=== PATIENT | male | born 1985 | race Caucasian/White ===

== ENCOUNTER 2017-07-08 16:01 | Inpatient (IN) | payer MEDICARE, OTHER ==
[2017-07-08] MEDS ORDERED: ONDANSETRON 4 MG/2 ML VIAL IVPUSH ONE ×2 (16:03→16:32)
--- NOTE | 2017-07-08 16:03 | PDOC ---
History of Present Illness - General History Source: Patient, Friend Exam Limitations: No Limitations - History of Present Illness Initial Comments: 07/08/17 16:19 The patient is a 31 year old male, with no significant past medical history, who presents to the emergency department with, multiple episodes of emesis beginning approx. 3 hours ago. The patient states he began feeling nauseous and vomiting around 1 pm this afternoon. The patient states he drank a more than normal amount of alcoholic beverages last night. The patient reports he tried to eat yakut food earlier today but vomited after. The patient states he has had similar episodes of vomiting in the past and has been seen at [facility] ED. The patient states he has not followed up with a GI specialist. The patient denies history of stomach ulcers. He denies any recent fevers, chills, headache or dizziness. He denies any recent diarrhea or constipation. He denies any recent chest pain or shortness of breath. Allergies: NKA Past surgical history: None reported. Social History: Smoker 2-3 cigarettes a day. Moderate EtOH consumption. Patient reports marijuana usage. Primary Care Physician: Charisma Vu MD <Raymon Dupree - Last Filed: 07/08/17 16:30> <Michelle Toussaint - Last Filed: 07/09/17 12:02> - General Chief Complaint: Coffee Ground Emesis Stated Complaint: VOMITING Time Seen by Provider: 07/08/17 16:03 Past History <Raymon Dupree - Last Filed: 07/08/17 16:30> <Michelle Toussaint - Last Filed: 07/09/17 12:02> - Past Medical History Allergies/Adverse Reactions: Allergies Allergy/AdvReac Type Severity Reaction Status Date / Time No Known Allergies Allergy Verified 07/08/17 16:10 Home Medications: Ambulatory Orders NK [No Known Home Medication] 07/08/17 Review of Systems - Review of Systems Comments:: 07/08/17 16:20 GENERAL/CONSTITUTIONAL: No fever or chills. No weakness. HEAD, EYES, EARS, NOSE AND THROAT: No change in vision. No ear pain or discharge. No sore throat. CARDIOVASCULAR: No chest pain or shortness of breath. RESPIRATORY: No cough, wheezing, or hemoptysis. GASTROINTESTINAL: (+) Nausea. (+) Vomiting. No diarrhea or constipation. GENITOURINARY: No dysuria, frequency, or change in urination. MUSCULOSKELETAL: No joint or muscle swelling or pain. No neck or back pain. SKIN: No rash NEUROLOGIC: No headache, vertigo, loss of consciousness, or change in strength/ sensation. ENDOCRINE: No increased thirst. No abnormal weight change. HEMATOLOGIC/LYMPHATIC: No anemia, easy bleeding, or history of blood clots. ALLERGIC/IMMUNOLOGIC: No hives or skin allergy. <Raymon Dupree - Last Filed: 07/08/17 16:30> *Physical Exam - Vital Signs Last Vital Signs Temp Pulse Resp BP Pulse Ox 98.1 F 73 18 134/82 100 07/08/17 16:02 07/08/17 16:02 07/08/17 16:02 07/08/17 16:02 07/08/17 16:02 <Raymon Dupree - Last Filed: 07/08/17 16:30> - Physical Exam Comments: GENERAL: Awake, alert, and fully oriented, actively vomiting coffee grounds on arrival in ED. HEAD: No signs of trauma EYES: PERRLA, EOMI, sclera anicteric, conjunctiva clear ENT: Auricles normal inspection, hearing grossly normal, nares patent, oropharynx clear without exudates. Dry mucosa NECK: Normal ROM, supple, no lymphadenopathy, JVD, or masses LUNGS: Breath sounds equal, clear to auscultation bilaterally. No wheezes, and no crackles HEART: Regular rate and rhythm, normal S1 and S2, no murmurs, rubs or gallops ABDOMEN: Soft, +diffuse mild tenderness, hypoactive bowel sounds. No guarding, no rebound. No masses EXTREMITIES: Normal range of motion, no edema. No clubbing or cyanosis. No cords, erythema, or tenderness NEUROLOGICAL: Cranial nerves II through XII grossly intact. Normal speech, normal gait SKIN: Warm, Dry, normal turgor, no rashes or lesions noted. <Michelle Toussaint - Last Filed: 07/09/17 12:02> Heart Score/ECG Review - ECG Impressions Comment:: EKG read 18:03- NSR 62 bpm, no acute ST/T changes <Michelle Toussaint - Last Filed: 07/09/17 12:02> ED Treatment Course - LABORATORY CBC & Chemistry Diagram: 07/08/17 16:04 07/08/17 16:04 <Raymon Dupree - Last Filed: 07/08/17 16:30> - LABORATORY CBC & Chemistry Diagram: 07/09/17 06:00 07/09/17 06:00 <Michelle Toussaint - Last Filed: 07/09/17 12:02> Medical Decision Making - Medical Decision Making 07/08/17 17:00 Case d/w hospitalist Dr. Luciano. Vitals stable and H&H is wnl at present. Lactate pending. 07/08/17 18:03 Lactate 3.5. Patient has received 3 liters of IV fluid, will repeat. D/w hospitalist. <Michelle Toussaint - Last Filed: 07/09/17 12:02> *DC/Admit/Observation/Transfer - Attestations Scribe Attestion: 07/08/17 16:20 Documentation prepared by Raymon Dupree, acting as medical unit secretary for Michelle Toussaint MD. <Raymon Dupree - Last Filed: 07/08/17 16:30> - Discharge Dispostion Admit: Yes <Michelle Toussaint - Last Filed: 07/09/17 12:02> Diagnosis at time of Disposition: Coffee ground emesis - Discharge Dispostion Condition at time of disposition: Guarded
[2017-07-08] MEDS ORDERED: morphine CARPU-JECT 4 MG/1 ML DISP.SYRIN IVPUSH ONE (16:11)
[2017-07-08] MEDS ORDERED: SODIUM CHLORIDE 1,000 ML IV STA (16:11)
[2017-07-08] MEDS ORDERED: SODIUM CHLORIDE 2,000 ML IV STA (16:13)
[2017-07-08] MEDS ORDERED: PANTOPRAZOLE SODIUM 40 MG VIAL IVPUSH ONE (16:15)
[2017-07-08] MEDS ORDERED: morphine SULFATE 4 MG/ML VIAL ONE (16:23)
[2017-07-08 16:32] LABS: BASO % 0.4 % (0-2.0); EOS % 0.4 % (0-4.5); HEMATOCRIT 45.9 % (35.4-49); HEMOGLOBIN 15.3 GM/dl (11.7-16.9); LYMPH % 20.3 % (8-40); MCHC 33.3 g/dl (32.0-35.9); MEAN CELL VOLUME 90.2 fl (80-96); MEAN PLT VOLUME 9.1 fl (7.5-11.1); MONO % 7.8 % (3.8-10.2); NEUT % 71.1 % (42.8-82.8); PLATELET COUNT 265 K/MM3 (134-434); RBC 5.09 M/mm3 (4.00-5.60); RDW 12.7 % (11.9-15.9); WHITE BLOOD COUNT 8.9 K/mm3 (4.0-10.8)
[2017-07-08] MEDS ORDERED: ONDANSETRON 4 MG/2 ML VIAL ONE (16:37)
[2017-07-08 16:44] LABS: ALBUMIN 5.2 g/dl (3.5-5.0); ALK PHOS 75 U/L (32-92); ANION GAP 12 (8-16); BILIRUBIN,TOTAL 1.2 mg/dl (0.2-1.0); BLOOD UREA NITROGEN 15 mg/dl (7-18); CALCIUM 9.9 mg/dl (8.4-10.2); CHLORIDE 100 mmol/L (98-107); CO2 25 mmol/L (22-28); CREATININE 1.2 mg/dl (0.6-1.3); GLUCOSE,RANDOM 117 mg/dl (74-106); POTASSIUM 3.9 mmol/L (3.5-5.1); SGOT/AST 31 U/L (10-42); SGPT/ALT 18 U/L (10-40); SODIUM 137 mmol/L (136-145); TOT PROT 8.7 g/dl (6.4-8.3)
[2017-07-08] MEDS ORDERED: METOCLOPRAMIDE HCL INJECTION 10 MG/2 ML VIAL IVPB ONE (16:52)
[2017-07-08 16:59] LABS: INR 1.1 (0.82-1.09); PROTHROMBIN TIME (PATIENT) 12.3 SEC (10.2-13.0)
[2017-07-08] MEDS ORDERED: PANTOPRAZOLE SODIUM 80 MG in SODIUM CHLORIDE 100 ML IVPB SCH (17:00)
[2017-07-08 17:33] LABS: LIPASE 130 U/L (73-393)
[2017-07-08 18:20] LABS: URINE APPEARANCE Clear; URINE BILIRUBIN 1+ (NEGATIVE); URINE BLOOD Negative (NEGATIVE); URINE COLOR YELLOW; URINE GLUCOSE (UA) Negative (NEGATIVE); URINE KETONE 4+ (NEGATIVE); URINE LEUK ESTERASE Negative (NEGATIVE); URINE NITRITE Negative (NEGATIVE); URINE PROTEIN 1+ (NEGATIVE)
[2017-07-08 18:54] LABS: EPI CELLS 0-3 /HPF; URINE MUCUS 2+; URINE RBC NONE SEEN /hpf (0-3); URINE WBC 0-3 (0-2)
[2017-07-08 19:20] LABS: METHADONE, UR NEGATIVE ng/ml (CUTOFF=300); PHENCYCLIDINE,URINE NEGATIVE ng/ml (CUTOFF=25); URINE AMPHETAMINES NEGATIVE ng/ml (CUTOFF=500); URINE BARBITURATES NEGATIVE ng/ml (CUTOFF=200); URINE BENZODIAZEPINES NEGATIVE ng/ml (CUTOFF=200)
[2017-07-08 19:22] LABS: COCAINE, UR POSITIVE ng/ml (CUTOFF=300); OPIATES, URI POSITIVE ng/ml (CUTOFF=300)
[2017-07-08 19:26] LABS: BASO % 0.4 % (0-2.0); EOS % 0.2 % (0-4.5); HEMATOCRIT 37.7 % (35.4-49); HEMOGLOBIN 12.7 GM/dl (11.7-16.9); MCH 30.5 pg (25.7-33.7); MCHC 33.6 g/dl (32.0-35.9); MEAN CELL VOLUME 90.7 fl (80-96); MEAN PLT VOLUME 8.8 fl (7.5-11.1); MONO % 5.8 % (3.8-10.2); NEUT % 80.6 % (42.8-82.8); PLATELET COUNT 204 K/MM3 (134-434); RBC 4.16 M/mm3 (4.00-5.60); RDW 12.9 % (11.9-15.9); WHITE BLOOD COUNT 7.5 K/mm3 (4.0-10.8)
--- NOTE | 2017-07-08 22:32 | PN ---
Teaching Attending Note Name of Resident: Richard Edmonds ATTENDING PHYSICIAN STATEMENT I saw and evaluated the patient. Chart, data reviewed. I reviewed the resident's note and discussed the case with the resident. I agree with the resident's findings and plan as documented. SUBJECTIVE: 31yo man with marijuana and cocaine abuse c/o vomiting which started 4/7 in the early afternoon after he ate portuguese food. He reported multiple episodes of dark , bloody vomitus which started immediately after starting to eat portuguese food - sesame chicken and fried rice. He denied any abdominal pain or diarrhea. No LOC or dizziness. No family history of stomach cancer. OBJECTIVE: Last Vital Signs Temp Pulse Resp BP Pulse Ox 98.3 F 72 16 113/59 100 07/08/17 21:03 07/08/17 21:03 07/08/17 21:03 07/08/17 21:03 07/08/17 20:12 general - nad, aaox3 heent- no sclera pallor neck -supple cv-s1+s2+rrr chest- cta b/l abdomen- soft, nt, no masses palpated skin -no rashes appreciated Abnormal Lab Results 07/08/17 07/08/17 07/08/17 16:04 16:30 18:10 Random Glucose 117 H Lactic Acid 3.5 H* Total Bilirubin 1.2 H Total Protein 8.7 H Albumin 5.2 H Urine Protein 1+ H Urine Ketones 4+ H Urine Bilirubin 1+ H EKG -reviewed, NSR ASSESSMENT AND PLAN: #31yo man with sudden hematemesis, now resolved. Unknown etiology. Hemodynamically stable. -admit to med/surg -trend CBC -PPIs IV q12hrs -IV fluid hydration -NPO -zofran IV prn if nausea and vomiting -GI consult for EGD #substance abuse- marijuana, cocaine -counseled on cessation #DVT ppx -SCDs
[2017-07-08] MEDS ORDERED: ONDANSETRON 4 MG/2 ML VIAL IVPUSH PRN (22:40)
--- NOTE | 2017-07-08 22:40 | HP ---
CHIEF COMPLAINT: Hematemesis PCP: Charisma Vu MD HISTORY OF PRESENT ILLNESS: 31 year old M with no pmh presented with coffee ground emesis. Patient went out drinking last night and had a moderate amount of alcohol and cocaine. Patient woke up this morning and went to work feeling fine. At 230, he ate sesame chicken/pork fried rice and after 2 bites had emesis. The emesis started off as yellow, but then transitioned to red/black. Patient came to the ED. He continued to have emesis until 630. Patient denies fever, chills, abd pain, diarrhea, constipation, bloody stools. Patient had an episode of emesis in the past 3 years ago, but has never seen a GI doctor. ER course was notable for: (1) labs (2) vitals (3) utox Recent Travel: denies PAST MEDICAL HISTORY: none PAST SURGICAL HISTORY: orchiectomy as child Social History: Smokin cigs/week Alcohol: 1 night per week Drugs: +cocaine (2x/month)/marijuana(daily) Family History: noncontributory Allergies No Known Allergies Allergy (Verified 07/08/17 16:10) HOME MEDICATIONS: Home Medications Medication Instructions Recorded NK [No Known Home Medication] 07/08/17 REVIEW OF SYSTEMS CONSTITUTIONAL: Absent: fever, chills, diaphoresis, generalized weakness, malaise, loss of appetite, weight change HEENT: Absent: rhinorrhea, nasal congestion, throat pain, throat swelling, difficulty swallowing, mouth swelling, ear pain, eye pain, visual changes CARDIOVASCULAR: Absent: chest pain, syncope, palpitations, irregular heart rate, lightheadedness , peripheral edema RESPIRATORY: Absent: cough, shortness of breath, dyspnea with exertion, orthopnea, wheezing, stridor, hemoptysis GASTROINTESTINAL: Absent: abdominal pain, abdominal distension, nausea, vomiting, hematemesis, diarrhea, constipation, melena, hematochezia GENITOURINARY: Absent: dysuria, frequency, urgency, hesitancy, hematuria, flank pain, genital pain MUSCULOSKELETAL: Absent: myalgia, arthralgia, joint swelling, back pain, neck pain SKIN: Absent: rash, itching, pallor HEMATOLOGIC/IMMUNOLOGIC: Absent: easy bleeding, easy bruising, lymphadenopathy, frequent infections ENDOCRINE: Absent: unexplained weight gain, unexplained weight loss, heat intolerance, cold intolerance NEUROLOGIC: Absent: headache, focal weakness or paresthesias, dizziness, unsteady gait, seizure, mental status changes, bladder or bowel incontinence PSYCHIATRIC: Absent: anxiety, depression, suicidal or homicidal ideation, hallucinations. PHYSICAL EXAMINATION Vital Signs - 24 hr 07/08/17 07/08/17 07/08/17 16:02 17:00 20:12 Temperature 98.1 F Pulse Rate 73 Pulse Rate [ 75 72 Left Radial] Respiratory 18 16 16 Rate Blood Pressure 134/82 Blood Pressure 130/78 113/59 [Left Arm] O2 Sat by Pulse 100 99 100 Oximetry (%) 07/08/17 07/08/17 20:25 21:03 Temperature 98.3 F 98.3 F Pulse Rate 72 72 Pulse Rate [ Left Radial] Respiratory 16 16 Rate Blood Pressure 113/59 113/59 Blood Pressure [Left Arm] O2 Sat by Pulse Oximetry (%) GENERAL: Awake, alert, and fully oriented, in no acute distress. HEAD: Normal with no signs of trauma. EYES: Extraocular movements intact, sclera anicteric, conjunctiva clear. No lid lag. EARS, NOSE, THROAT: Nares patent, oropharynx clear without exudates. Dry mucous membranes. NECK: Normal range of motion, supple without lymphadenopathy, JVD, or masses. LUNGS: Breath sounds equal, clear to auscultation bilaterally. No wheezes, and no crackles. No accessory muscle use. HEART: Regular rate and rhythm, normal S1 and S2 without murmur, rub or gallop. ABDOMEN: Soft, nontender, not distended, normoactive bowel sounds, no guarding, no rebound, no masses. No hepatomegaly or splenomegaly. MUSCULOSKELETAL: Normal range of motion at all joints. No bony deformities or tenderness. No CVA tenderness. UPPER EXTREMITIES: 2+ pulses, warm, well-perfused. No cyanosis. No clubbing. No peripheral edema. LOWER EXTREMITIES: 2+ pulses, warm, well-perfused. No calf tenderness. No peripheral edema. NEUROLOGICAL: Cranial nerves II-XII intact. Normal speech. Normal gait. PSYCHIATRIC: Cooperative. Good eye contact. Appropriate mood and affect. SKIN: Warm, dry, normal turgor, no rashes or lesions noted, normal capillary refill. Laboratory Results - last 24 hr 07/08/17 07/08/17 07/08/17 16:04 16:04 16:04 WBC 8.9 RBC 5.09 Hgb 15.3 Hct 45.9 MCV 90.2 MCH 30.0 MCHC 33.3 RDW 12.7 Plt Count 265 MPV 9.1 Neutrophils % 71.1 Lymphocytes % 20.3 Monocytes % 7.8 Eosinophils % 0.4 Basophils % 0.4 PT with INR 12.3 INR 1.10 Sodium 137 Potassium 3.9 Chloride 100 Carbon Dioxide 25 Anion Gap 12 BUN 15 Creatinine 1.2 Creat Clearance w eGFR > 60 Random Glucose 117 H Lactic Acid Calcium 9.9 Total Bilirubin 1.2 H AST 31 ALT 18 Alkaline Phosphatase 75 Total Protein 8.7 H Albumin 5.2 H Lipase 130 Urine Color Urine Appearance Urine pH Ur Specific [place] Urine Protein Urine Glucose (UA) Urine Ketones Urine Blood Urine Nitrite Urine Bilirubin Urine Urobilinogen Ur Leukocyte Esterase Urine RBC Urine WBC Ur Epithelial Cells Urine Mucus Opiates Screen Methadone Screen Barbiturate Screen Phencyclidine Screen Ur Amphetamines Screen MDMA (Ecstasy) Screen Benzodiazepines Screen Cocaine Screen U Marijuana (THC) Screen Blood Type Antibody Screen 07/08/17 07/08/17 07/08/17 16:04 16:15 16:30 WBC RBC Hgb Hct MCV MCH MCHC RDW Plt Count MPV Neutrophils % Lymphocytes % Monocytes % Eosinophils % Basophils % PT with INR INR Sodium Potassium Chloride Carbon Dioxide Anion Gap BUN Creatinine Creat Clearance w eGFR Random Glucose Lactic Acid 3.5 H* Calcium Total Bilirubin AST ALT Alkaline Phosphatase Total Protein Albumin Lipase Urine Color Urine Appearance Urine pH Ur Specific [place] Urine Protein Urine Glucose (UA) Urine Ketones Urine Blood Urine Nitrite Urine Bilirubin Urine Urobilinogen Ur Leukocyte Esterase Urine RBC Urine WBC Ur Epithelial Cells Urine Mucus Opiates Screen Methadone Screen Barbiturate Screen Phencyclidine Screen Ur Amphetamines Screen MDMA (Ecstasy) Screen Benzodiazepines Screen Cocaine Screen U Marijuana (THC) Screen Blood Type A POSITIVE A POSITIVE Antibody Screen Negative 07/08/17 07/08/17 07/08/17 18:10 18:10 19:00 WBC RBC Hgb Hct MCV MCH MCHC RDW Plt Count MPV Neutrophils % Lymphocytes % Monocytes % Eosinophils % Basophils % PT with INR INR Sodium Potassium Chloride Carbon Dioxide Anion Gap BUN Creatinine Creat Clearance w eGFR Random Glucose Lactic Acid 0.8 Calcium Total Bilirubin AST ALT Alkaline Phosphatase Total Protein Albumin Lipase Urine Color Yellow Urine Appearance Clear Urine pH 6.0 Ur Specific [place] 1.025 Urine Protein 1+ H Urine Glucose (UA) Negative Urine Ketones 4+ H Urine Blood Negative Urine Nitrite Negative Urine Bilirubin 1+ H Urine Urobilinogen 1.0 Ur Leukocyte Esterase Negative Urine RBC None seen Urine WBC 0-3 Ur Epithelial Cells 0-3 Urine Mucus 2+ Opiates Screen Positive Methadone Screen Negative Barbiturate Screen Negative Phencyclidine Screen Negative Ur Amphetamines Screen Negative MDMA (Ecstasy) Screen Negative Benzodiazepines Screen Negative Cocaine Screen Positive U Marijuana (THC) Screen Positive Blood Type Antibody Screen 07/08/17 19:00 WBC 7.5 RBC 4.16 Hgb 12.7 D Hct 37.7 D MCV 90.7 MCH 30.5 MCHC 33.6 RDW 12.9 Plt Count 204 D MPV 8.8 Neutrophils % 80.6 Lymphocytes % 13.0 D Monocytes % 5.8 Eosinophils % 0.2 Basophils % 0.4 PT with INR INR Sodium Potassium Chloride Carbon Dioxide Anion Gap BUN Creatinine Creat Clearance w eGFR Random Glucose Lactic Acid Calcium Total Bilirubin AST ALT Alkaline Phosphatase Total Protein Albumin Lipase Urine Color Urine Appearance Urine pH Ur Specific [place] Urine Protein Urine Glucose (UA) Urine Ketones Urine Blood Urine Nitrite Urine Bilirubin Urine Urobilinogen Ur Leukocyte Esterase Urine RBC Urine WBC Ur Epithelial Cells Urine Mucus Opiates Screen Methadone Screen Barbiturate Screen Phencyclidine Screen Ur Amphetamines Screen MDMA (Ecstasy) Screen Benzodiazepines Screen Cocaine Screen U Marijuana (THC) Screen Blood Type Antibody Screen ASSESSMENT/PLAN: 31 year old M with no pmh presented with coffee ground emesis #Coffee ground emesis -npo -ivf ns @ 125 cc/hr -zofran prn -protonix 40 mg bid -trend cbc, transfuse if hgb <7 -Gi consult, Dr Donahue #FEN/GI -ivf @ 125 cc/hr -wnl -npo #PPx -SCDs Visit type - Emergency Visit Emergency Visit: Yes ED Registration Date: 07/08/17 Care time: The patient presented to the Emergency Department on the above date and was hospitalized for further evaluation of their emergent condition. - New Patient This patient is new to me today: Yes Date on this admission: 07/08/17 - Critical Care Critical Care patient: No Hospitalist Screening - Colonoscopy Questionnaire Colonoscopy Questionnaire: Colonoscopy Questionnaire - Patient: 50 - 75 years old and never had a screening colonoscopy: Unknown History of colon or rectal polyps, or CA: Unknown History of IBD, Crohn's disease or UC: Unknown History of abdominal radiation therapy as a child: Unknown - Relative: 1 with colon or rectal CA, or polyps at age 60 or younger: Unknown Colon or rectal CA diagnosed at age 45 or younger: Unknown Multiple relatives with colon or rectal CA: Unknown - Outcome: Screening Result: Negative Screen
[2017-07-08] MEDS ORDERED: FOLIC ACID 1 MG TABLET (FP) PO ONE (22:45)
[2017-07-08] MEDS ORDERED: THIAMINE HCL 200 MG/2 ML VIAL IVPB ONE (22:45)
[2017-07-08] MEDS: SODIUM CHLORIDE 1,000 ML IV SCH (23:21)
[2017-07-08 23:59] LABS: BASO % 0.2 % (0-2.0); EOS % 0.1 % (0-4.5); HEMATOCRIT 37.3 % (35.4-49); HEMOGLOBIN 12.8 GM/dL (11.7-16.9); LYMPH % 24.5 % (8-40); MCH 31.3 pg (25.7-33.7); MCHC 34.4 g/dl (32.0-35.9); MEAN CELL VOLUME 91.2 fl (80-96); MEAN PLT VOLUME 9.3 fl (7.5-11.1); MONO % 8.7 % (3.8-10.2); NEUT % 66.5 % (42.8-82.8); PLATELET COUNT 180 K/MM3 (134-434); RBC 4.09 M/mm3 (4.00-5.60); RDW 13.2 % (11.9-15.9); WHITE BLOOD COUNT 6.3 K/mm3 (4.0-10.0)
[2017-07-09 01:27] VITALS: BMI 25.7
[2017-07-09 08:29] LABS: ALBUMIN 3.3 g/dl (3.4-5.0); ANION GAP 7 (8-16); BLOOD UREA NITROGEN 12 mg/dL (7-18); CALCIUM 8.1 mg/dL (8.5-10.1); CHLORIDE 110 mmol/L (98-107); CO2 25 mmol/L (21-32); GLUCOSE,RANDOM 80 mg/dL (74-106); POTASSIUM 3.9 mmol/L (3.5-5.1); SGOT/AST 16 U/L (15-37); SGPT/ALT 18 U/L (12-78); SODIUM 142 mmol/L (136-145)
[2017-07-09 08:32] LABS: ALK PHOS 60 U/L (45-117); BILIRUBIN,TOTAL 0.8 mg/dL (0.2-1.0); CREATININE 0.9 mg/dL (0.7-1.3); TOT PROT 5.7 g/dl (6.4-8.2)
[2017-07-09 08:38] LABS: INR 1.1 (0.82-1.09); PROTHROMBIN TIME (PATIENT) 12.4 SEC (9.98-11.88)
[2017-07-09 08:56] LABS: BASO % 0.3 % (0-2.0); EOS % 1.2 % (0-4.5); HEMATOCRIT 35.5 % (35.4-49); HEMOGLOBIN 11.9 GM/dL (11.7-16.9); LYMPH % 47.7 % (8-40); MCH 30.9 pg (25.7-33.7); MCHC 33.6 g/dl (32.0-35.9); MEAN CELL VOLUME 92.1 fl (80-96); MEAN PLT VOLUME 9.8 fl (7.5-11.1); MONO % 9.4 % (3.8-10.2); NEUT % 41.4 % (42.8-82.8); PLATELET COUNT 153 K/MM3 (134-434); RBC 3.85 M/mm3 (4.00-5.60); RDW 13.3 % (11.9-15.9); WHITE BLOOD COUNT 5.3 K/mm3 (4.0-10.0)
--- NOTE | 2017-07-09 09:00 | EKG ---
Test Reason : Blood Pressure : / mmHG Vent. Rate : 062 BPM Atrial Rate : 062 BPM P-R Int : 174 ms QRS Dur : 088 ms QT Int : 430 ms P-R-T Axes : 073 076 056 degrees QTc Int : 436 ms NORMAL SINUS RHYTHM NORMAL ECG NO PREVIOUS ECGS AVAILABLE Confirmed by MAURO MENDIETA, LIZABETH ([id number]) on 07/09/2017 9:00:26 AM Referred By: SHANAE Confirmed By:LIZABETH WADE MD
[2017-07-09] MEDS ORDERED: PANTOPRAZOLE SODIUM 40 MG VIAL IVPUSH SCH (10:00)
--- NOTE | 2017-07-09 13:22 | CON.GI ---
Consult Consult Specialty:: GI Referred by:: Hospitalist Service Reason for Consultation:: Hematemesis - History of Present Illness Chief Complaint: "I was vomiting" History of Present Illness: 31M admitted through [facility] ER for evaluation of vomiting. He states that it began around 2:45pm yesterday afternoon. He had eaten lunch earlier. He began vomiting, initially food material, then bilious vomiting "more times than he could count" followed by red tinged/black vomitus. Triage vitals revealed him to be afebrile, not tachycardic and normotensive. The evening before this event he had drank enough alcohol to have a hangover yesterday morning, snorted cocaine and smoked marijauna. He says that he will have episodes of vomiting intermittently and had a persistent episode 3 years ago requiring an ER evaluation (no interventions performed aside from medications). He has never had n upper endoscopy or colonoscopy. There is no family history of colorectal cancer or other GI malignancy. 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 - Alcohol/Substance Use Hx Alcohol Use: Yes History of Substance Use: reports: Cocaine (twice per month, intranasal), Marijuana (daily) - Smoking History Smoking history: Current every day smoker Have you smoked in the past 12 months: Yes Aproximately how many cigarettes per day: 2 - Social History Usual Living Arrangement: Alone ADL: Independent Occupation: Works in [employer] store Place of : [facility] History of Recent Travel: No Home Medications - Allergies Allergies/Adverse Reactions: Allergies Allergy/AdvReac Type Severity Reaction Status Date / Time No Known Allergies Allergy Verified 07/08/17 16:10 - Home Medications Home Medications: Ambulatory Orders NK [No Known Home Medication] 07/08/17 Family Disease History - Family Disease History Family Disease History: Other: Father ( age 32: killed), Mother (alive: 60: healthy), Brother (7, some are 1/2 siblings: healthy), Sister (4, some are half siblings: healthy), Son (2, heatlhy) Other Family History: No family history of colorectal cancer or other GI malignancy Review of Systems - Review of Systems Constitutional: denies: Fever Cardiovascular: denies: Chest Pain Respiratory: denies: SOB Gastrointestinal: reports: Nausea, Vomiting, Vomiting Blood. denies: Abdominal Pain, Constipation, Melena, Rectal Bleeding Physical Exam-GI Vital Signs: Vital Signs Temperature 98 F 07/09/17 10:00 Pulse Rate 44 L 07/09/17 10:00 Respiratory Rate 18 07/09/17 10:00 Blood Pressure 110/60 07/09/17 10:00 O2 Sat by Pulse Oximetry (%) 97 07/09/17 09:00 Constitutional: Yes: Calm Eyes: No: Sclera Icterus Cardiovascular: Yes: Bradycardia (pulse regular). No: Murmur Respiratory: Yes: CTA Bilaterally, Diminished Gastrointestinal Inspection: No: Distention, Scars ...Auscultate: Yes: Normoactive Bowel Sounds ...Palpate: No: Hepatomegaly, Splenomegaly, Tenderness ...Percussion: No: Tympanitic ...Rectal Exam: Yes: Deferred (refused by patient) Edema: No Neurological: Yes: Alert, Oriented Labs: CBC, BMP 07/09/17 06:00 07/09/17 06:00 INR, PTT INR 1.10 (0.82-1.09) 07/09/17 06:00 Problem List - Problems (1) Coffee ground emesis Assessment/Plan: Coffee ground emesis occurred only after multiple episodes of non bloody vomiting. Suspect Romina Banks tear. Aside from his current acute episode he also gives somewhat of a chronic history of intermittent vomiting. This could very well be attributed to his regular marijuana use. i explained this to him. Advise: Clear liquids D/C PPI drip and change to PO Advised complete alcohol, marijuana and cocaine cessation patient bradycardic. Unclear baseline. If cleared from cardio standpoint, can have EGD tomorrow. Discussed EGD with Satya. Discussed potential risks of the procedure like but not limited to bleeding, perfoation requiring surgery to repair, infection, sedation medication effetcs all of which could be potentially life threatening. he has agreed. NPO except meds after midnight. Monitor H/H and for active bleeding. Code(s): K92.0 - HEMATEMESIS
--- NOTE | 2017-07-09 13:54 | CON.GI ---
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
[2017-07-09] MEDS: SODIUM CHLORIDE 1,000 ML IV SCH (16:58)
--- NOTE | 2017-07-09 17:20 | CON.CARD ---
Consult Consult Specialty:: Cardiology Referred by:: Wolf Cho DO Reason for Consultation:: Pre-procedure cardiovascular evaluation - History of Present Illness Chief Complaint: Hematemesis History of Present Illness: 31M h/o cocaine, marijuana and alcohol abuse admitted for evaluation of hematemesis, planned for EGD, suspect MWT. Patient denies cardiovascular symptoms including angina, dyspnea, near or true syncope, palpitations, orthopnea, PND or LE edema, sinus bradycardia 40s on telemetry overnight, increasing appropriately with activity. - History Source History Provided By: Patient Limitations to Obtaining History: No Limitations - Past Surgical History Additional Surgical History: Correction of left undescended testicle - Alcohol/Substance Use Hx Alcohol Use: Yes History of Substance Use: reports: Cocaine (twice per month, intranasal), Marijuana (daily) - Smoking History Smoking history: Current every day smoker Have you smoked in the past 12 months: Yes Aproximately how many cigarettes per day: 2 - Social History Usual Living Arrangement: Alone ADL: Independent Occupation: Works in History of Recent Travel: No Home Medications - Allergies Allergies/Adverse Reactions: Allergies Allergy/AdvReac Type Severity Reaction Status Date / Time No Known Allergies Allergy Verified 07/08/17 16:10 - Home Medications Home Medications: Ambulatory Orders NK [No Known Home Medication] 07/08/17 Family Disease History - Family Disease History Family Disease History: Other: Father ( age 32: killed), Mother (alive: 60: healthy), Brother (7, some are 1/2 siblings: healthy), Sister (4, some are half siblings: healthy), Son (2, heatlhy) Other Family History: No family history of colorectal cancer or other GI malignancy Review of Systems - Review of Systems Gastrointestinal: reports: Nausea, Vomiting, Other (Hematemesis) Vital Signs: Vital Signs Temperature 97.8 F 07/09/17 14:00 Pulse Rate 71 07/09/17 14:00 Respiratory Rate 18 07/09/17 14:00 Blood Pressure 107/47 07/09/17 14:00 O2 Sat by Pulse Oximetry (%) 97 07/09/17 09:00 Constitutional: Yes: No Distress, Calm, Thin Neck: Yes: Supple Respiratory: Yes: Regular, CTA Bilaterally Gastrointestinal: Yes: Normal Bowel Sounds, Soft Cardiovascular: Yes: Regular Rate and Rhythm JVD: No Carotid Bruit: No Heart Sounds: Yes: S1, S2 Edema: No - Other Data Labs, Other Data: CBC, BMP 07/09/17 06:00 07/09/17 06:00 INR, PTT INR 1.10 (0.82-1.09) 07/09/17 06:00 NSR @ 62 Sinus bradycardia 40s on telemetry overnight, increasing appropriately with activity. Problem List - Problems (1) Pre-procedural cardiovascular examination Code(s): Z01.810 - ENCOUNTER FOR PREPROCEDURAL CARDIOVASCULAR EXAMINATION (2) Polysubstance abuse Code(s): F19.10 - OTHER PSYCHOACTIVE SUBSTANCE ABUSE, UNCOMPLICATED (3) Coffee ground emesis Code(s): K92.0 - HEMATEMESIS Assessment/Plan 1. Hematemesis exclude Romina-Banks Tears 2. Pre-procedure cardiovascular evaluation 3. Sinus bradycardia referable to high vagal tone with chronotropic competence, does not need intervention P:1. Given absence of symptoms of acute coronary syndrome, decompensated CHF or malignant arrhythmia, may proceed with EGD from CV-standpoint 2. No intervention indicated for asymptomatic sinus bradycardia 3. Continue oral PPI, plan for EGD in AM 4. Advised importance of alcohol, marijuana and cocaine abstinence 5. Thank you for consultative opportunity, august d/c telemetry monitoring
--- NOTE | 2017-07-09 18:27 | PN ---
Physical Exam: SUBJECTIVE: Patient seen and examined. He has no complaints. He denies chest pain, palpitations, abdominal pain, nausea, vomiting. OBJECTIVE: Vital Signs Period Temp Pulse Resp BP Sys/Hebert Pulse Ox Last 24 Hr 97.6 F-98.5 F 43-72 16-18 106-113/47-62 97-100 GENERAL: The patient is awake, alert, and fully oriented, in no acute distress. LUNGS: Breath sounds equal, clear to auscultation bilaterally, no wheezes, no crackles, no accessory muscle use. HEART: Regular rate and rhythm, S1, S2 without murmur, rub or gallop. ABDOMEN: Soft, nontender, nondistended, normoactive bowel sounds, no guarding, no rebound, no hepatosplenomegaly, no masses. EXTREMITIES: 2+ pulses, warm, well-perfused, no edema. Laboratory Results - last 24 hr 07/08/17 07/08/17 07/08/17 16:04 16:15 18:10 WBC RBC Hgb Hct MCV MCH MCHC RDW Plt Count MPV Neutrophils % Lymphocytes % Monocytes % Eosinophils % Basophils % PT with INR INR Sodium Potassium Chloride Carbon Dioxide Anion Gap BUN Creatinine Creat Clearance w eGFR Random Glucose Lactic Acid Calcium Total Bilirubin AST ALT Alkaline Phosphatase Total Protein Albumin Urine Color Yellow Urine Appearance Clear Urine pH 6.0 Ur Specific [place] 1.025 Urine Protein 1+ H Urine Glucose (UA) Negative Urine Ketones 4+ H Urine Blood Negative Urine Nitrite Negative Urine Bilirubin 1+ H Urine Urobilinogen 1.0 Ur Leukocyte Esterase Negative Urine RBC None seen Urine WBC 0-3 Ur Epithelial Cells 0-3 Urine Mucus 2+ Opiates Screen Methadone Screen Barbiturate Screen Phencyclidine Screen Ur Amphetamines Screen MDMA (Ecstasy) Screen Benzodiazepines Screen Cocaine Screen U Marijuana (THC) Screen Blood Type A POSITIVE A POSITIVE Antibody Screen Negative 07/08/17 07/08/17 07/08/17 18:10 19:00 19:00 WBC 7.5 RBC 4.16 Hgb 12.7 D Hct 37.7 D MCV 90.7 MCH 30.5 MCHC 33.6 RDW 12.9 Plt Count 204 D MPV 8.8 Neutrophils % 80.6 Lymphocytes % 13.0 D Monocytes % 5.8 Eosinophils % 0.2 Basophils % 0.4 PT with INR INR Sodium Potassium Chloride Carbon Dioxide Anion Gap BUN Creatinine Creat Clearance w eGFR Random Glucose Lactic Acid 0.8 Calcium Total Bilirubin AST ALT Alkaline Phosphatase Total Protein Albumin Urine Color Urine Appearance Urine pH Ur Specific [place] Urine Protein Urine Glucose (UA) Urine Ketones Urine Blood Urine Nitrite Urine Bilirubin Urine Urobilinogen Ur Leukocyte Esterase Urine RBC Urine WBC Ur Epithelial Cells Urine Mucus Opiates Screen Positive Methadone Screen Negative Barbiturate Screen Negative Phencyclidine Screen Negative Ur Amphetamines Screen Negative MDMA (Ecstasy) Screen Negative Benzodiazepines Screen Negative Cocaine Screen Positive U Marijuana (THC) Screen Positive Blood Type Antibody Screen 07/08/17 07/09/17 07/09/17 23:52 06:00 06:00 WBC 6.3 5.3 RBC 4.09 3.85 L Hgb 12.8 11.9 Hct 37.3 35.5 MCV 91.2 92.1 MCH 31.3 30.9 MCHC 34.4 33.6 RDW 13.2 13.3 Plt Count 180 153 MPV 9.3 9.8 Neutrophils % 66.5 41.4 L D Lymphocytes % 24.5 47.7 H D Monocytes % 8.7 9.4 Eosinophils % 0.1 1.2 D Basophils % 0.2 0.3 PT with INR 12.40 H INR 1.10 Sodium Potassium Chloride Carbon Dioxide Anion Gap BUN Creatinine Creat Clearance w eGFR Random Glucose Lactic Acid Calcium Total Bilirubin AST ALT Alkaline Phosphatase Total Protein Albumin Urine Color Urine Appearance Urine pH Ur Specific [place] Urine Protein Urine Glucose (UA) Urine Ketones Urine Blood Urine Nitrite Urine Bilirubin Urine Urobilinogen Ur Leukocyte Esterase Urine RBC Urine WBC Ur Epithelial Cells Urine Mucus Opiates Screen Methadone Screen Barbiturate Screen Phencyclidine Screen Ur Amphetamines Screen MDMA (Ecstasy) Screen Benzodiazepines Screen Cocaine Screen U Marijuana (THC) Screen Blood Type Antibody Screen 07/09/17 06:00 WBC RBC Hgb Hct MCV MCH MCHC RDW Plt Count MPV Neutrophils % Lymphocytes % Monocytes % Eosinophils % Basophils % PT with INR INR Sodium 142 Potassium 3.9 Chloride 110 H Carbon Dioxide 25 Anion Gap 7 L BUN 12 Creatinine 0.9 Creat Clearance w eGFR > 60 Random Glucose 80 Lactic Acid Calcium 8.1 L Total Bilirubin 0.8 AST 16 ALT 18 Alkaline Phosphatase 60 Total Protein 5.7 L Albumin 3.3 L Urine Color Urine Appearance Urine pH Ur Specific [place] Urine Protein Urine Glucose (UA) Urine Ketones Urine Blood Urine Nitrite Urine Bilirubin Urine Urobilinogen Ur Leukocyte Esterase Urine RBC Urine WBC Ur Epithelial Cells Urine Mucus Opiates Screen Methadone Screen Barbiturate Screen Phencyclidine Screen Ur Amphetamines Screen MDMA (Ecstasy) Screen Benzodiazepines Screen Cocaine Screen U Marijuana (THC) Screen Blood Type Antibody Screen Active Medications Generic Name Dose Route Start Last Admin Trade Name Freq PRN Reason Stop Dose Admin Sodium Chloride 1,000 mls @ 125 mls/hr 07/08/17 22:45 07/09/17 16:58 Normal Saline - IV 125 mls/hr ASDIR SHONA Administration Ondansetron HCl 4 mg 07/08/17 22:40 Zofran Injection IVPUSH Q6H PRN NAUSEA Pantoprazole Sodium 40 mg 07/10/17 10:00 Protonix - PO DAILY SHONA ASSESSMENT/PLAN: This is a 31 year old man with no significant medical history who presented to the ED with coffee ground emesis. 1. Coffee ground emesis likely secondary to Romina Banks tear - Continue Protonix - Hemoglobin stable - Plan for EGD tomorrow - Stop alcohol, marijuana 2. Sinus bradycardia, asymptomatic - Cardiology input appreciated Visit type - Emergency Visit Emergency Visit: Yes ED Registration Date: 07/08/17 Care time: The patient presented to the Emergency Department on the above date and was hospitalized for further evaluation of their emergent condition. - New Patient This patient is new to me today: Yes Date on this admission: 07/09/17 - Critical Care Critical Care patient: No - Discharge Referral Referred to [facility] No
[2017-07-10] MEDS: SODIUM CHLORIDE 1,000 ML IV SCH (00:02)
[2017-07-10 06:33] LABS: HEMATOCRIT 34.2 % (35.4-49); HEMOGLOBIN 11.8 GM/dL (11.7-16.9); MCH 31.8 pg (25.7-33.7); MCHC 34.5 g/dl (32.0-35.9); MEAN CELL VOLUME 92.1 fl (80-96); MEAN PLT VOLUME 9.6 fl (7.5-11.1); PLATELET COUNT 157 K/MM3 (134-434); RBC 3.71 M/mm3 (4.00-5.60); RDW 13.2 % (11.9-15.9); WHITE BLOOD COUNT 3.9 K/mm3 (4.0-10.0)
[2017-07-10] MEDS ORDERED: PANTOPRAZOLE 40 MG TABLET (FP) PO SCH (10:00)
--- NOTE | 2017-07-10 10:15 | PN ---
Progress Note, Physician Chief Complaint: Events noted Not in distress History of Present Illness: Patient was seen and examined. Awake and alert. Chart was reviewed Denies chest pain, SOB or palpitations - Current Medication List Current Medications: Active Medications Sodium Chloride (Normal Saline -) 1,000 mls @ 125 mls/hr IV ASDIR SHONA Last Admin: 07/10/17 00:02 Dose: 125 mls/hr Ondansetron HCl (Zofran Injection) 4 mg IVPUSH Q6H PRN PRN Reason: NAUSEA Pantoprazole Sodium (Protonix -) 40 mg PO DAILY [facility] - Objective Vital Signs: Vital Signs Temperature 97.4 F L 07/10/17 09:56 Pulse Rate 49 L 07/10/17 09:56 Respiratory Rate 22 07/10/17 09:56 Blood Pressure 129/60 07/10/17 09:56 O2 Sat by Pulse Oximetry (%) 97 07/10/17 09:00 Eyes: Yes: PERRL HENT: Yes: Atraumatic Neck: Yes: Supple Cardiovascular: Yes: Regular Rate and Rhythm, S1, S2 Respiratory: Yes: CTA Bilaterally Gastrointestinal: Yes: Normal Bowel Sounds, Soft. No: Tenderness Edema: No Labs: CBC, BMP 07/10/17 06:00 07/09/17 06:00 INR, PTT INR 1.10 (0.82-1.09) 07/09/17 06:00 Problem List - Problems (1) Bradycardia Code(s): R00.1 - BRADYCARDIA, UNSPECIFIED (2) Coffee ground emesis Code(s): K92.0 - HEMATEMESIS (3) Pre-procedural cardiovascular examination Code(s): Z01.810 - ENCOUNTER FOR PREPROCEDURAL CARDIOVASCULAR EXAMINATION (4) Polysubstance abuse Code(s): F19.10 - OTHER PSYCHOACTIVE SUBSTANCE ABUSE, UNCOMPLICATED Assessment/Plan 1. Hematemesis exclude Romina-Banks Tears 2. Pre-procedure cardiovascular evaluation 3. Sinus bradycardia referable to high vagal tone with chronotropic competence PLAN: 1. Given absence of symptoms of acute coronary syndrome, decompensated CHF or malignant arrhythmia, may proceed with EGD from cardiovascular standpoint 2. No intervention indicated for asymptomatic sinus bradycardia 3. Continue oral PPI, plan for EGD today. GI input to follow 4. Advised importance of alcohol, marijuana and cocaine abstinence Further plans are to follow Conrad Stein mD
--- NOTE | 2017-07-10 10:30 | PN ---
Physical Exam: SUBJECTIVE: Patient seen and examined No acute events overnight. Patient resting comfortably this morning. Offering no complaints. Denies any N/V/D/C. OBJECTIVE: Vital Signs Period Temp Pulse Resp BP Sys/Hebert Pulse Ox Last 24 Hr 97.4 F-98.5 F 43-71 18-22 92-129/42-60 97-100 GENERAL: Awake, alert, and fully oriented, in no acute distress. HEAD: Normal with no signs of trauma. EYES: Extraocular movements intact, sclera anicteric, conjunctiva clear. No lid lag. EARS, NOSE, THROAT: Nares patent, oropharynx clear without exudates. Dry mucous membranes. NECK: Normal range of motion, supple without lymphadenopathy, JVD, or masses. LUNGS: Breath sounds equal, clear to auscultation bilaterally. No wheezes, and no crackles. No accessory muscle use. HEART: Regular rate and rhythm, normal S1 and S2 without murmur, rub or gallop. ABDOMEN: Soft, nontender, not distended, normoactive bowel sounds, no guarding, no rebound, no masses. No hepatomegaly or splenomegaly. MUSCULOSKELETAL: Normal range of motion at all joints. No bony deformities or tenderness. No CVA tenderness. UPPER EXTREMITIES: 2+ pulses, warm, well-perfused. No cyanosis. No clubbing. No peripheral edema. LOWER EXTREMITIES: 2+ pulses, warm, well-perfused. No calf tenderness. No peripheral edema. NEUROLOGICAL: Cranial nerves II-XII intact. Normal speech. Normal gait. PSYCHIATRIC: Cooperative. Good eye contact. Appropriate mood and affect. SKIN: Warm, dry, normal turgor, no rashes or lesions noted, normal capillary refill. Laboratory Results - last 24 hr 07/10/17 06:00 WBC 3.9 L RBC 3.71 L Hgb 11.8 Hct 34.2 L MCV 92.1 MCH 31.8 MCHC 34.5 RDW 13.2 Plt Count 157 MPV 9.6 Active Medications Generic Name Dose Route Start Last Admin Trade Name Freq PRN Reason Stop Dose Admin Sodium Chloride 1,000 mls @ 125 mls/hr 07/08/17 22:45 07/10/17 00:02 Normal Saline - IV 125 mls/hr ASDIR SHONA Administration Ondansetron HCl 4 mg 07/08/17 22:40 Zofran Injection IVPUSH Q6H PRN NAUSEA Pantoprazole Sodium 40 mg 07/10/17 10:00 Protonix - PO DAILY SHONA ASSESSMENT/PLAN: 31 year old M with no pmh presented with coffee ground emesis #Coffee ground emesis -npo -ivf ns @ 125 cc/hr -zofran prn -protonix 40 mg daily -trend cbc, transfuse if hgb <7 -Gi consult, Dr Donahue -EGD scheduled for today #Sinus bradycardia, asymptomatic -Cardiology on board #FEN/GI -ivf @ 125 cc/hr -wnl -npo #PPx -SCDs -protonix 40 mg daily Visit type - Emergency Visit Emergency Visit: Yes ED Registration Date: 07/08/17 Care time: The patient presented to the Emergency Department on the above date and was hospitalized for further evaluation of their emergent condition. - New Patient This patient is new to me today: No - Critical Care Critical Care patient: No
[2017-07-10] MEDS ORDERED: PROPOFOL 20 ML ONE ×2 (12:28)
[2017-07-10] MEDS ORDERED: MIDAZOLAM HCL 5 MG/1 ML Single Dose Vial ONE (12:28)
--- NOTE | 2017-07-10 12:49 | PROC ---
Endoscopy Procedure Endoscopy procedure completed. Please see scanned procedure report. Mild gastritis and esophagitis on EGD. Biosies taken. The exam was negative for significant lesions PPI op qam Diet as tolerated follow biopsies in 1 week as OP
[2017-07-10 15:30] VITALS: BP 136/84; PULSE 49; TEMP 98.4
--- NOTE | 2017-07-10 16:00 | DS ---
Physical Exam: Selected Entries 07/08/17 07/10/17 07/10/17 16:02 13:31 14:00 Temperature 98.1 F Pulse Rate 73 49 L Respiratory 20 Rate Blood Pressure 136/84 O2 Sat by Pulse 100 Oximetry (%) Laboratory Tests 07/08/17 07/08/17 07/09/17 18:10 18:10 06:00 WBC Hgb Hct Plt Count INR 1.10 Sodium Potassium Chloride Carbon Dioxide Anion Gap BUN Creatinine Urine Ketones 4+ H Urine Bilirubin 1+ H Urine Urobilinogen 1.0 Ur Leukocyte Esterase Negative Urine Mucus 2+ Opiates Screen Positive Methadone Screen Negative Barbiturate Screen Negative Phencyclidine Screen Negative Ur Amphetamines Screen Negative MDMA (Ecstasy) Screen Negative Benzodiazepines Screen Negative Cocaine Screen Positive U Marijuana (THC) Screen Positive 07/09/17 07/10/17 06:00 06:00 WBC 3.9 L Hgb 11.8 Hct 34.2 L Plt Count 157 INR Sodium 142 Potassium 3.9 Chloride 110 H Carbon Dioxide 25 Anion Gap 7 L BUN 12 Creatinine 0.9 Urine Ketones Urine Bilirubin Urine Urobilinogen Ur Leukocyte Esterase Urine Mucus Opiates Screen Methadone Screen Barbiturate Screen Phencyclidine Screen Ur Amphetamines Screen MDMA (Ecstasy) Screen Benzodiazepines Screen Cocaine Screen U Marijuana (THC) Screen EKG-NSR @ 62 bpm HOSPITAL COURSE: Date of Admission:07/08/17 Date of Discharge: 07/10/17 31 year old M with no pmh presented with coffee ground emesis 1 day after binge drinking, cocaine use, and marijuana use. He underwent EGD on 07/10-- found to have esophagitis, gastritis. Patient tolerated diet after procedure and sent home on protonix 40 mg po daily. Biopsies will be reported in 1 week outpatient. Patient also had sinus bradycardia while here. Cardiology evaluated the patient and reported "No intervention indicated for asymptomatic sinus bradycardia." Minutes to complete discharge: 42 Discharge Summary Reason For Visit: UPPER GI BLEED Current Active Problems Bradycardia (Acute) Coffee ground emesis (Acute) Polysubstance abuse (Chronic) Condition: Stable - Instructions Diet, Activity, Other Instructions: You were in the hospital for vomiting up blood. You underwent an endoscopy and were found to have esophagitis and gastritis. Please follow up with your primary care provider and wellness coordinator within 1 week. Avoid taking aleve, advil, motrin, or any similiar type products. Please take protonix by mouth daily. A prescription has been sent to your pharmacy. If you have chest pain, shortness of breath, or any new/worsening symptoms please come back to the hospital immediately. Referrals: Irving Charles MD [Staff Physician] - 1 Week Yair Reyes MD [Staff Physician] - 1 Week Charisma Vu MD [Primary Care Provider] - 1 Week Disposition: HOME - Home Medications Comprehensive Discharge Medication List: Ambulatory Orders Pantoprazole Sodium [Protonix -] 40 mg PO DAILY #30 tablet.ec 07/10/17 This patient is new to me today: No Emergency Visit: Yes ED Registration Date: 07/08/17 Care time: The patient presented to the Emergency Department on the above date and was hospitalized for further evaluation of their emergent condition. Critical Care patient: No - Discharge Referral Referred to [facility] Med P.C.: No
--- NOTE | 2017-07-10 17:38 | PN ---
Teaching Attending Note Name of Resident: Richard Edmonds ATTENDING PHYSICIAN STATEMENT I saw and evaluated the patient. I reviewed the resident's note and discussed the case with the resident. I agree with the resident's findings and plan as documented. SUBJECTIVE: Patient has no complaints. Tolerating diet. OBJECTIVE: Vital Signs Period Temp Pulse Resp BP Sys/Hebert Pulse Ox Last 24 Hr 97.4 F-98.5 F 43-60 18-22 92-136/42-84 97-100 HEART: S1S2, RRR LUNGS: Clear ABDOMEN: Soft, non-tender, non-distended, normal BS EXTREMITIES: No edema Laboratory Results - last 24 hr /12/19 06:00 WBC 3.9 L RBC 3.71 L Hgb 11.8 Hct 34.2 L MCV 92.1 MCH 31.8 MCHC 34.5 RDW 13.2 Plt Count 157 MPV 9.6 ASSESSMENT AND PLAN: This is a 31 year old man with no significant medical history who presented to the ED with coffee ground emesis. 1. Coffee ground emesis likely secondary to alcoholic gastritis and esophagitis - s/p EGD today - Continue Protonix - Hemoglobin stable - Stop alcohol, marijuana 2. Sinus bradycardia, asymptomatic 3. Ok for discharge home on Protonix
--- NOTE | 2017-07-11 12:27 | PATH ---
Surgical Pathology Report Patient Name: MEHREEN JAY Med. Rec. #: [id number] /Age/Gender: 1985 (Age: 31) / M Account: [id number] Location: 4 W TELEMETRY U Taken: 07/10/2017 Received: 07/10/2017 Reported: 07/11/2017 Physicians: Yair Reyes M.D. Specimen(s) Received A: BX DUODENUM B: BX ANTRUM AND BODY C: BX DISTAL ESOPHAGUS Clinical History Upper GI bleed Postoperative diagnosis: Esophagitis, gastritis Final Diagnosis A. DUODENUM, SECOND PORTION, BIOPSY: DUODENAL MUCOSA WITHOUT SIGNIFICANT PATHOLOGIC FINDINGS. B. STOMACH, ANTRUM AND BODY, BIOPSY: GASTRIC ANTRAL AND BODY MUCOSA WITH MINIMAL CHRONIC INFLAMMATION. IMMUNOHISTOCHEMICAL STAIN FOR H. PYLORI IS NEGATIVE. C. DISTAL ESOPHAGUS, BIOPSY: SQUAMOCOLUMNAR MUCOSA WITH MODERATE CHRONIC INFLAMMATION AND CHANGES OF MODERATE REFLUX ESOPHAGITIS. NO INTESTINAL METAPLASIA OR DYSPLASIA IDENTIFIED. Electronically Signed Polly Lou M.D. Gross Description A. Received in formalin, labeled "biopsy second portion of duodenum" are 2 molina, irregular portions of soft tissue measuring 0.2 and 0.3 cm. in greatest dimension. The specimens are submitted in toto in one cassette. B. Received in formalin, labeled "biopsy antrum and body" are 2 molina, irregular portions of soft tissue measuring 0.2 and 0.5 cm. in greatest dimension. The specimens are submitted in toto in one cassette. C. Received in formalin, labeled "biopsy distal esophagus" are 3 molina, irregular portions of soft tissue ranging from 0.2-0.4 cm. in greatest dimension. The specimens are submitted in toto in one cassette. 07/10/2017 saudi07/10/2017
== END 2017-07-10 16:47 | disposition home or self-care (01) | DRG 243 ==
LOC: FER 16:01 → J4W 21:30
PROVIDERS: ADMIT Internal Medicine; ATTEND Internal Medicine
PROC: 0DB64ZX Excision of Stomach, Percutaneous Endoscopic Approach, Diagnostic (ICD-10-PCS; 2017-07-10)
PROC: 0DB54ZX Excision of Esophagus, Percutaneous Endoscopic Approach, Diagnostic (ICD-10-PCS; 2017-07-10)
PROC: 0DD98ZX Extraction of Duodenum, Via Natural or Artificial Opening Endoscopic, Diagnostic (ICD-10-PCS; principal; 2017-07-10 12:30)
DX: K21.0 Gastro-esophageal reflux disease with esophagitis (principal); K92.2 Gastrointestinal hemorrhage, unspecified; R00.1 Bradycardia, unspecified; R11.10 Vomiting, unspecified; F12.10 Cannabis abuse, uncomplicated; F14.10 Cocaine abuse, uncomplicated; F17.210 Nicotine dependence, cigarettes, uncomplicated; K29.70 Gastritis, unspecified, without bleeding; R10.13 Epigastric pain
CPT/HCPCS: 36415; 80053; 80307; 81003; 81015; 83605; 83690; 85025; 85027; 85610; 86850; 86900; 86901; 88305-TC; 93005; 99284-25; J7030

== ENCOUNTER 2020-08-19 09:26 | Emergency (ER) | payer OTHER ==
[2020-08-19 09:30] VITALS: BP 114/58; PULSE 80; TEMP 98.1; BMI 25.7
[2020-08-19] MEDS ORDERED: IBUPROFEN 600 MG TABLET (FP) PO ONE ×2 (09:33→09:46)
== END 2020-08-19 10:24 | disposition home or self-care (01) ==
LOC: JERFT 09:26
DX: M79.645 Pain in left finger(s) (principal)
CPT/HCPCS: 73130-TC-LT-FY; 99283-25

== ENCOUNTER 2021-03-21 17:48 | Emergency (ER) | payer OTHER ==
[2021-03-21 18:19] VITALS: BP 121/77; PULSE 89; TEMP 101.1; BMI 26.2
[2021-03-21 19:46] LABS: HEMATOCRIT 46.1 % (35.4-49); HEMOGLOBIN 16.1 GM/dL (11.7-16.9); LYMPH % 28.9 % (8-40); MCHC 34.8 g/dl (32.0-35.9); MEAN CELL VOLUME 88.9 fl (80-96); MONO % 12.8 % (3.8-10.2); NEUT % 56.3 % (42.8-82.8); PLATELET COUNT 103 10^3/uL (134-434); RBC 5.19 M/mm3 (4.00-5.60); RDW 12.7 % (11.9-15.9); WHITE BLOOD COUNT 3.1 K/mm3 (4.0-10.0)
[2021-03-21 20:12] LABS: ALBUMIN 4.1 g/dl (3.4-5.0); CALCIUM 8.9 mg/dL (8.5-10.1)
[2021-03-21 20:15] LABS: CREATININE 1.3 mg/dL (0.55-1.3)
[2021-03-21 20:17] LABS: BILIRUBIN,TOTAL 0.4 mg/dL (0.2-1)
== END 2021-03-21 23:02 | disposition home or self-care (01) ==
LOC: JER 17:48
PROC: 3E033GC Introduction of Other Therapeutic Substance into Peripheral Vein, Percutaneous Approach (ICD-10-PCS; principal; 2021-03-21)
DX: U07.1 COVID-19 (principal)
CPT/HCPCS: 36415; 80053; 85025; 96365; 96375; 99284-25; J0131

== ENCOUNTER 2021-03-24 19:33 | Emergency (ER) | payer OTHER ==
[2021-03-24 19:44] VITALS: BP 101/60; PULSE 98; TEMP 98.9; BMI 26.2
[2021-03-24] MEDS ORDERED: ONDANSETRON 4 MG/2 ML VIAL IVPUSH ONE (20:32)
[2021-03-24] MEDS ORDERED: LACTATED RINGERS SOLUTION 1000 ML INFUS.BAG IV ONE (20:32)
[2021-03-24] MEDS ORDERED: FAMOTIDINE 20 MG/50 ML IVPB 20 MG/50 ML MG IVPB ONE ×2 (20:32→20:43)
[2021-03-24] MEDS ORDERED: ACETAMINOPHEN 1000 MG/100 ML VIAL IVPB ONE (20:32)
[2021-03-24] MEDS ORDERED: ACETAMINOPHEN INJECTION 100 ML IVPB ONE (20:43)
[2021-03-24] MEDS ORDERED: ONDANSETRON 4 MG/2 ML VIAL ONE (20:43)
[2021-03-24 21:34] LABS: BASO % 0.1 % (0-2.0); HEMATOCRIT 43.2 % (35.4-49); HEMOGLOBIN 14.9 GM/dL (11.7-16.9); LYMPH % 14.5 % (8-40); MCH 30.2 pg (25.7-33.7); MCHC 34.5 g/dl (32.0-35.9); MEAN CELL VOLUME 87.5 fl (80-96); MONO % 10.3 % (3.8-10.2); NEUT % 75.1 % (42.8-82.8); PLATELET COUNT 138 10^3/uL (134-434); RBC 4.93 M/mm3 (4.00-5.60); RDW 12.7 % (11.9-15.9); WHITE BLOOD COUNT 7.6 K/mm3 (4.0-10.0)
[2021-03-24 21:56] LABS: CALCIUM 8.9 mg/dL (8.5-10.1)
[2021-03-24 21:57] LABS: ALBUMIN 3.8 g/dl (3.4-5.0)
[2021-03-24 22:01] LABS: BILIRUBIN,TOTAL 0.5 mg/dL (0.2-1); TOT PROT 7.8 g/dl (6.4-8.2)
[2021-03-24] MEDS ORDERED: MAG HYDROX/AL HYDROX/SIMETH 30 ML UNIT-DOSE CUP PO ONE (22:36)
[2021-03-24] MEDS ORDERED: MAG HYDROX/AL HYDROX/SIMETH 30 ML UNIT-DOSE CUP ONE (22:45)
== END 2021-03-24 23:50 | disposition home or self-care (01) ==
LOC: JER 19:33
DX: R10.13 Epigastric pain (principal)
CPT/HCPCS: 36415; 71045-TC-FY; 80053; 83690; 83735; 85025; 99284-25; J0131

== ENCOUNTER 2022-06-03 13:37 | Emergency (ER) | payer OTHER ==
[2022-06-03 13:41] VITALS: BP 122/59; PULSE 63; RESP 20; TEMP 97.8; BMI 26.2
[2022-06-03] MEDS ORDERED: FLUORESCEIN NA 1 EA STRIP OD ONE (13:45)
[2022-06-03] MEDS ORDERED: TETRACAINE 0.5% OPHTH SOLN 2 ML BOTTLE OD ONE (13:46)
== END 2022-06-03 14:00 | disposition home or self-care (01) ==
LOC: JERFT 13:37
DX: S05.01XA Injury of conjunctiva and corneal abrasion without foreign body, right eye, initial encounter (principal); W45.8XXA Other foreign body or object entering through skin, initial encounter
CPT/HCPCS: 99283-25

== ENCOUNTER 2025-01-25 13:32 | Emergency (ER) | payer SELFPAY ==
[2025-01-25 13:38] VITALS: BP 140/82; PULSE 79; RESP 20; TEMP 98.2; BMI 24.3
== END 2025-01-25 14:01 | disposition home or self-care (01) ==
LOC: JERFT 13:32
DX: Z48.02 Encounter for removal of sutures (principal)
CPT/HCPCS: 99281-25